=== PATIENT | female | born 1960 | race Caucasian/White ===

== ENCOUNTER 2019-05-20 13:50 | Outpatient (RCR) | payer OTHER, SELFPAY | END 2019-05-23 23:59 | disposition home or self-care (01) | LOC: SPT 13:50 | PROVIDERS: PCP Family Medicine; Referring Provider Family Medicine; Visit Provider Family Medicine | DX: G89.29 Other chronic pain (principal); M25.512 Pain in left shoulder | CPT/HCPCS: 97161 ==

== ENCOUNTER 2019-05-24 06:00 | Outpatient (RCR) | payer OTHER, SELFPAY | END 2019-06-21 23:59 | disposition home or self-care (01) | LOC: SPT 06:00 | PROVIDERS: PCP Family Medicine; Referring Provider Family Medicine; Visit Provider Family Medicine | DX: G89.29 Other chronic pain (principal); M25.512 Pain in left shoulder | CPT/HCPCS: 97110 ==

== ENCOUNTER 2019-06-22 06:00 | Outpatient (RCR) | payer OTHER, SELFPAY | END 2019-07-14 23:00 | disposition home or self-care (01) | LOC: SPT 06:00 | PROVIDERS: PCP Family Medicine; Referring Provider Family Medicine; Visit Provider Family Medicine | DX: Z01.89 Encounter for other specified special examinations (principal) ==

== ENCOUNTER 2020-07-27 14:31 | Outpatient (RCR) | payer OTHER, SELFPAY | END 2020-08-20 23:59 | disposition home or self-care (01) | LOC: SPT 14:31 | PROVIDERS: PCP Family Medicine; Referring Provider Family Medicine; Visit Provider Family Medicine | DX: M25.512 Pain in left shoulder (principal); G89.29 Other chronic pain; M75.02 Adhesive capsulitis of left shoulder | CPT/HCPCS: 97110; 97161 ==

== ENCOUNTER 2020-08-21 06:00 | Outpatient (RCR) | payer OTHER, SELFPAY | END 2020-09-20 23:59 | disposition home or self-care (01) | LOC: SPT 06:00 | PROVIDERS: PCP Family Medicine; Referring Provider Family Medicine; Visit Provider Family Medicine | DX: M25.512 Pain in left shoulder (principal); G89.29 Other chronic pain; M75.02 Adhesive capsulitis of left shoulder | CPT/HCPCS: 97110 ==

== ENCOUNTER 2022-11-28 13:00 | Outpatient (RCR) | payer OTHER, SELFPAY | END 2022-12-21 23:59 | disposition home or self-care (01) | LOC: CR 13:00 | PROVIDERS: PCP Family Medicine; Referring Provider Internal Medicine Cardiovascular Disease; Visit Provider Internal Medicine Cardiovascular Disease | DX: Z95.5 Presence of coronary angioplasty implant and graft (principal) | CPT/HCPCS: 93798 ==

== ENCOUNTER 2022-12-22 12:34 | Outpatient (RCR) | payer OTHER, SELFPAY | END 2023-01-20 23:59 | disposition home or self-care (01) | LOC: CR 12:34 | PROVIDERS: PCP Family Medicine; Referring Provider Internal Medicine Cardiovascular Disease; Visit Provider Internal Medicine Cardiovascular Disease | DX: Z95.5 Presence of coronary angioplasty implant and graft (principal) | CPT/HCPCS: 93798 ==

== ENCOUNTER 2023-01-23 11:21 | Outpatient (RCR) | payer OTHER, SELFPAY | END 2023-02-20 23:59 | disposition home or self-care (01) | LOC: CR 11:21 | PROVIDERS: PCP Family Medicine; Referring Provider Internal Medicine Cardiovascular Disease; Visit Provider Internal Medicine Cardiovascular Disease | DX: Z95.5 Presence of coronary angioplasty implant and graft (principal) | CPT/HCPCS: 93798 ==

== ENCOUNTER 2023-02-22 08:37 | Outpatient (RCR) | payer OTHER, SELFPAY | END 2023-03-22 23:59 | disposition home or self-care (01) | LOC: CR 08:37 | PROVIDERS: PCP Family Medicine; Referring Provider Internal Medicine Cardiovascular Disease; Visit Provider Internal Medicine Cardiovascular Disease | DX: Z95.5 Presence of coronary angioplasty implant and graft (principal) | CPT/HCPCS: 93798 ==

== ENCOUNTER 2023-03-23 10:05 | Outpatient (RCR) | payer OTHER, SELFPAY | END 2023-04-22 23:59 | disposition home or self-care (01) | LOC: CR 10:05 | PROVIDERS: PCP Family Medicine; Referring Provider Internal Medicine Cardiovascular Disease; Visit Provider Internal Medicine Cardiovascular Disease | DX: Z95.5 Presence of coronary angioplasty implant and graft (principal) | CPT/HCPCS: 93798 ==